=== PATIENT | male | born 1995 | race Caucasian/White ===

== ENCOUNTER 2017-10-09 14:21 | Emergency (ER) | payer OTHER ==
[~2017-10-09] VITALS: Ht 190.5 cm; Wt 131.5 kg
[2017-10-09 14:21] VITALS: BP_SYST 130
[2017-10-09] MEDS ORDERED: LORazepam 2 MG/ML VIAL (FOR ER USE) IM ONE (15:00)
[2017-10-09 16:00] VITALS: BP_SYST 132
== END 2017-10-09 16:00 | disposition home or self-care (01) ==
LOC: SED 14:21
DX: F41.9 Anxiety disorder, unspecified (principal)
CPT/HCPCS: 96372; 99284; J2060